=== PATIENT | female | born 1955 | race Caucasian/White ===

== ENCOUNTER 2017-12-12 19:01 | Inpatient (IN) | payer MEDICARE, OTHER ==
[2017-12-12 20:05] LABS: ADD MAN DIFF? NO
[2017-12-12 20:07] LABS: BASOPHILS % 0.5 % (0.0-2.0); EOSINOPHILS % 0.5 % (0.0-7.0); HEMATOCRIT 23.5 % (37.0-47.0); HEMOGLOBIN 7.4 g/dl (12.0-16.0); LYMPHOCYTES # 1.1 10^3/ul (0.8-2.9); LYMPHOCYTES % 12.5 % (15.0-51.0); MEAN CORPUSCULAR HEMOGLOBIN 31.8 pg (29.0-33.0); MEAN CORPUSCULAR HGB CONC 31.5 g/dl (32.0-37.0); MEAN CORPUSCULAR VOLUME 100.9 fl (82.0-101.0); MEAN PLATELET VOLUME 10.7 fl (7.4-10.4); MONOCYTE # 0.5 10^3/ul (0.3-0.9); NEUTROPHIL # 6.8 10^3/ul (1.6-7.5); NEUTROPHILS % 76.4 % (39.0-77.0); NUCLEATED RED BLOOD CELLS # 0.1 10^3/ul (0.0-0.0); NUCLEATED RED BLOOD CELLS% 0.7 /100WBC (0.0-0.0); PLATELET COUNT 287 10^3/UL (140-415); RED BLOOD COUNT 2.33 10^6/ul (4.20-5.40); RED CELL DISTRIBUTION WIDTH 17.7 % (11.5-14.5)
[2017-12-12 20:07] LABS: WHITE BLOOD COUNT 8.8 10^3/ul (4.8-10.8)
[2017-12-12 20:24] LABS: ALANINE AMINOTRANSFERASE 21 IU/L (13-69); ALBUMIN 3.7 g/dl (3.3-4.9); ALBUMIN/GLOBULIN RATIO 1.15; ALKALINE PHOSPHATASE 112 IU/L (42-121); ANION GAP 12 (8-16); ASPARTATE AMINO TRANSFERASE 21 IU/L (15-46); BILIRUBIN,INDIRECT 0.7 mg/dl (0-1.1); BILIRUBIN,TOTAL 0.7 mg/dl (0.2-1.3); BLOOD UREA NITROGEN 30 mg/dl (7-20); CALCIUM 9.4 mg/dl (8.4-10.2); CARBON DIOXIDE 27 mmol/L (21-31); CHLORIDE 107 mmol/L (97-110); CREATININE 1.34 mg/dl (0.44-1.00); GLUCOSE 249 mg/dl (70-220); POTASSIUM 5.1 mmol/L (3.5-5.1); SODIUM 141 mmol/L (135-144); TOTAL PROTEIN 6.9 g/dl (6.1-8.1)
[2017-12-12 20:32] LABS: INR 1.12; PROTIME 14.6 Sec (11.9-14.9); PT RATIO 1.1
[2017-12-12 20:33] LABS: PARTIAL THROMBOPLASTIN TIME 25.9 Sec (25.0-35.0)
[2017-12-12] MEDS: SOD CHLORIDE 0.9% 250 ML IV (21:04)
[2017-12-12 22:02] LABS: IMMEDIATE SPIN CROSSMATCH 1 2
[2017-12-12] MEDS: ASPIRIN 81 MG TAB PO (22:07)
[2017-12-12] MEDS ORDERED: ONDANSETRON 4 MG INJ IV (22:30)
[2017-12-12] MEDS ORDERED: ACETAMINOPHEN 325 MG TAB PO (22:30)
[2017-12-12] MEDS ORDERED: ZOLPIDEM 5 MG TAB PO (23:00)
[2017-12-12] MEDS ORDERED: MAGNESIUM HYDROXIDE 30ML CUP PO (23:00)
[2017-12-12] MEDS ORDERED: NACL 0.9% 3 ML SYG IV (23:00)
[2017-12-12] MEDS ORDERED: HYDROCODONE/APAP (5/325) TAB PO (23:00)
[2017-12-12] MEDS ORDERED: BISACODYL (EC) 5 MG TAB PO (23:00)
[2017-12-12] MEDS ORDERED: DOCUSATE SODIUM 100 MG CAP PO (23:00)
[2017-12-12] MEDS ORDERED: DEXTROSE 50% 50 ML SYRINGE IV ×2 (23:45)
[2017-12-12] MEDS ORDERED: GLUCAGON 1 MG INJ IM (23:45)
[2017-12-12] MEDS ORDERED: GLUCOSE GEL 15 GRAM TUBE PO ×2 (23:45)
[2017-12-12] MEDS ORDERED: GLUCOSE GEL 15 GRAM TUBE BUCCAL (23:45)
[2017-12-13] MEDS: HEPARIN 5,000 UNIT/0.5 ML VIAL SC ×3 (00:06→20:58)
[2017-12-13] MEDS: ACCU-CHEK XX (02:12)
[2017-12-13] MEDS: METOPROLOL 25 MG TAB PO (03:05)
[2017-12-13] MEDS: INSULIN ASPART [NOVOLOG] 3 ML PEN SC ×9 (03:51→20:59)
[2017-12-13] MEDS: FUROSEMIDE 20 MG INJ IV ×2 (04:51→18:49)
[2017-12-13] MEDS: PANTOPRAZOLE (EC) 40 MG TAB PO (06:29)
[2017-12-13] MEDS: SPIRONOLACTONE 25 MG TAB PO (08:37)
[2017-12-13] MEDS: MAGNESIUM HYDROXIDE 30ML CUP PO (08:37)
[2017-12-13] MEDS: predniSONE 5 MG TAB PO (08:37)
[2017-12-13] MEDS: PRAMIPEXOLE 0.25 MG TAB PO ×3 (08:37→21:58)
[2017-12-13] MEDS: ALLOPURINOL 100 MG TAB PO (08:38)
[2017-12-13] MEDS: ASCORBIC ACID 500 MG TAB PO (08:38)
[2017-12-13] MEDS: FOLIC ACID 1 MG TAB PO (08:38)
[2017-12-13] MEDS: ASPIRIN 81 MG TAB PO (08:38)
[2017-12-13] MEDS: MULTIVITAMINS THERAPEUTIC TAB PO (08:38)
[2017-12-13] MEDS: SERTRALINE 100 MG TAB PO (08:38)
[2017-12-13] MEDS ORDERED: FERROUS SULFATE (EC) 325 MG TAB PO (09:00)
[2017-12-13] MEDS ORDERED: PANTOPRAZOLE (EC) 40 MG TAB PO (09:00)
[2017-12-13] MEDS: morphine 2 MG INJ IV (10:04)
[2017-12-13] MEDS: HYDROCODONE/APAP (5/325) TAB PO ×3 (10:10→21:04)
[2017-12-13] MEDS: INSULIN GLARGINE [LANtus] 3 ML PEN SC ×2 (10:11→20:44)
[2017-12-13] MEDS: ISOSORBIDE MONONITRATE(SR)30 MG TAB PO ×2 (11:47→20:42)
[2017-12-13 17:35] LABS: ADD MAN DIFF? NO
[2017-12-13 17:38] LABS: WHITE BLOOD COUNT 8.6 10^3/ul (4.8-10.8)
[2017-12-13 17:38] LABS: BASOPHILS % 0.4 % (0.0-2.0); EOSINOPHILS # 0.1 10^3/ul (0.0-0.5); EOSINOPHILS % 0.8 % (0.0-7.0); HEMATOCRIT 30.1 % (37.0-47.0); HEMOGLOBIN 9.9 g/dl (12.0-16.0); LYMPHOCYTES % 11.9 % (15.0-51.0); MEAN CORPUSCULAR HEMOGLOBIN 31.2 pg (29.0-33.0); MEAN CORPUSCULAR HGB CONC 32.9 g/dl (32.0-37.0); MEAN PLATELET VOLUME 10.5 fl (7.4-10.4); MONOCYTE # 0.6 10^3/ul (0.3-0.9); MONOCYTES % 6.4 % (0.0-11.0); NEUTROPHIL # 6.5 10^3/ul (1.6-7.5); NEUTROPHILS % 76.4 % (39.0-77.0); NUCLEATED RED BLOOD CELLS # 0.1 10^3/ul (0.0-0.0); NUCLEATED RED BLOOD CELLS% 0.7 /100WBC (0.0-0.0); PLATELET COUNT 293 10^3/UL (140-415); RED BLOOD COUNT 3.17 10^6/ul (4.20-5.40); RED CELL DISTRIBUTION WIDTH 19.3 % (11.5-14.5)
[2017-12-13 17:59] LABS: CREATINE KINASE 22 IU/L (23-200)
[2017-12-13 18:12] LABS: CK INDEX 7.1; CK-MB 1.56 ng/ml (0.0-2.4)
[2017-12-13 18:13] LABS: ALANINE AMINOTRANSFERASE 21 IU/L (13-69); ALBUMIN/GLOBULIN RATIO 1.15; ALKALINE PHOSPHATASE 95 IU/L (42-121); ANION GAP 9 (8-16); ASPARTATE AMINO TRANSFERASE 17 IU/L (15-46); BILIRUBIN,INDIRECT 1.2 mg/dl (0-1.1); BILIRUBIN,TOTAL 1.2 mg/dl (0.2-1.3); BLOOD UREA NITROGEN 38 mg/dl (7-20); CALCIUM 9.2 mg/dl (8.4-10.2); CARBON DIOXIDE 30 mmol/L (21-31); CHLORIDE 105 mmol/L (97-110); CREATININE 1.12 mg/dl (0.44-1.00); GLUCOSE 255 mg/dl (70-220); SODIUM 138 mmol/L (135-144); TOTAL PROTEIN 5.6 g/dl (6.1-8.1)
[2017-12-13 18:21] LABS: POTASSIUM 6.2 mmol/L (3.5-5.1)
[2017-12-13] MEDS: NA POLYST SULFON 15 GM/60 ML BTL PO (18:44)
[2017-12-13] MEDS ORDERED: morphine LIQ (10 MG/5 ML) CUP PO (19:00)
[2017-12-13 20:00] LABS: HEMOGLOBIN A1C 9.2 % (0-5.9)
[2017-12-13] MEDS: ATORVASTATIN 10 MG TAB PO (20:41)
[2017-12-14 00:28] LABS: OCCULT BLOOD STOOL NEGATIVE (NEGATIVE)
[2017-12-14] MEDS: ACCU-CHEK XX (02:00)
[2017-12-14] MEDS: PANTOPRAZOLE (EC) 40 MG TAB PO (05:50)
[2017-12-14 07:51] LABS: ADD MAN DIFF? NO
[2017-12-14 07:58] LABS: BASOPHIL # 0.1 10^3/ul (0.0-0.1); BASOPHILS % 0.7 % (0.0-2.0); EOSINOPHILS # 0.1 10^3/ul (0.0-0.5); EOSINOPHILS % 1.8 % (0.0-7.0); HEMATOCRIT 32.7 % (37.0-47.0); HEMOGLOBIN 10.5 g/dl (12.0-16.0); LYMPHOCYTES # 1.7 10^3/ul (0.8-2.9); LYMPHOCYTES % 21.6 % (15.0-51.0); MEAN CORPUSCULAR HEMOGLOBIN 30.6 pg (29.0-33.0); MEAN CORPUSCULAR HGB CONC 32.1 g/dl (32.0-37.0); MEAN CORPUSCULAR VOLUME 95.3 fl (82.0-101.0); MEAN PLATELET VOLUME 10.2 fl (7.4-10.4); MONOCYTE # 0.5 10^3/ul (0.3-0.9); MONOCYTES % 6.9 % (0.0-11.0); NEUTROPHILS % 65.3 % (39.0-77.0); NUCLEATED RED BLOOD CELLS% 0.5 /100WBC (0.0-0.0); PLATELET COUNT 294 10^3/UL (140-415); RED BLOOD COUNT 3.43 10^6/ul (4.20-5.40); RED CELL DISTRIBUTION WIDTH 18.9 % (11.5-14.5)
[2017-12-14 07:58] LABS: WHITE BLOOD COUNT 7.7 10^3/ul (4.8-10.8)
[2017-12-14] MEDS: ALLOPURINOL 100 MG TAB PO (08:03)
[2017-12-14] MEDS: MAGNESIUM HYDROXIDE 30ML CUP PO (08:04)
[2017-12-14] MEDS: ISOSORBIDE MONONITRATE(SR)30 MG TAB PO ×2 (08:04→20:33)
[2017-12-14] MEDS: MULTIVITAMINS THERAPEUTIC TAB PO (08:04)
[2017-12-14] MEDS: FOLIC ACID 1 MG TAB PO (08:05)
[2017-12-14] MEDS: predniSONE 5 MG TAB PO (08:05)
[2017-12-14] MEDS: ASPIRIN 81 MG TAB PO (08:05)
[2017-12-14] MEDS: ASCORBIC ACID 500 MG TAB PO (08:05)
[2017-12-14] MEDS: PRAMIPEXOLE 0.25 MG TAB PO ×3 (08:05→20:33)
[2017-12-14] MEDS: SERTRALINE 100 MG TAB PO (08:06)
[2017-12-14 08:14] LABS: CREATINE KINASE 21 IU/L (23-200)
[2017-12-14] MEDS: HEPARIN 5,000 UNIT/0.5 ML VIAL SC ×2 (08:19→20:43)
[2017-12-14] MEDS: INSULIN ASPART [NOVOLOG] 3 ML PEN SC ×6 (08:20→20:43)
[2017-12-14] MEDS: INSULIN GLARGINE [LANtus] 3 ML PEN SC ×2 (08:23→20:29)
[2017-12-14 08:24] LABS: ALANINE AMINOTRANSFERASE 27 IU/L (13-69); ALBUMIN 3.4 g/dl (3.3-4.9); ALBUMIN/GLOBULIN RATIO 1.09; ALKALINE PHOSPHATASE 107 IU/L (42-121); ANION GAP 9 (8-16); ASPARTATE AMINO TRANSFERASE 21 IU/L (15-46); BILIRUBIN,INDIRECT 1.3 mg/dl (0-1.1); BILIRUBIN,TOTAL 1.3 mg/dl (0.2-1.3); BLOOD UREA NITROGEN 36 mg/dl (7-20); CALCIUM 9.3 mg/dl (8.4-10.2); CARBON DIOXIDE 32 mmol/L (21-31); CHLORIDE 103 mmol/L (97-110); CREATININE 1.09 mg/dl (0.44-1.00); GLUCOSE 318 mg/dl (70-220); POTASSIUM 5.1 mmol/L (3.5-5.1); SODIUM 139 mmol/L (135-144); TOTAL PROTEIN 6.5 g/dl (6.1-8.1)
[2017-12-14 08:26] LABS: CK-MB 1.46 ng/ml (0.0-2.4)
[2017-12-14 08:30] LABS: TROPONIN-I 0.963 ng/ml (0.000-0.120)
[2017-12-14 08:36] LABS: PHOSPHORUS 3.8 mg/dl (2.5-4.9)
[2017-12-14] MEDS: REGADENOSON 0.4 MG/5 ML SYG (09:40)
[2017-12-14] MEDS: ACETAMINOPHEN 325 MG TAB PO (10:49)
[2017-12-14] MEDS: ONDANSETRON 4 MG INJ IV (10:49)
[2017-12-14] MEDS: HYDROCODONE/APAP (5/325) TAB PO ×2 (13:03→20:48)
[2017-12-14] MEDS: SOD CHLORIDE 0.9% 1,000 ML IV (15:24)
[2017-12-14] MEDS ORDERED: INSULIN GLARGINE [LANtus] 3 ML PEN SC (20:00)
[2017-12-14] MEDS: ATORVASTATIN 10 MG TAB PO (20:32)
[2017-12-15] MEDS: ACCU-CHEK XX (02:00)
[2017-12-15] MEDS: SOD CHLORIDE 0.9% 1,000 ML IV (04:48)
[2017-12-15] MEDS: PANTOPRAZOLE (EC) 40 MG TAB PO (06:31)
[2017-12-15 06:50] LABS: ADD MAN DIFF? NO
[2017-12-15 07:09] LABS: BASOPHILS % 0.5 % (0.0-2.0); EOSINOPHILS # 0.2 10^3/ul (0.0-0.5); EOSINOPHILS % 1.9 % (0.0-7.0); HEMATOCRIT 32.1 % (37.0-47.0); HEMOGLOBIN 10.3 g/dl (12.0-16.0); LYMPHOCYTES # 1.7 10^3/ul (0.8-2.9); LYMPHOCYTES % 21.3 % (15.0-51.0); MEAN CORPUSCULAR HEMOGLOBIN 30.6 pg (29.0-33.0); MEAN CORPUSCULAR HGB CONC 32.1 g/dl (32.0-37.0); MEAN CORPUSCULAR VOLUME 95.3 fl (82.0-101.0); MEAN PLATELET VOLUME 9.9 fl (7.4-10.4); MONOCYTE # 0.5 10^3/ul (0.3-0.9); MONOCYTES % 6.7 % (0.0-11.0); NEUTROPHIL # 5.4 10^3/ul (1.6-7.5); NEUTROPHILS % 67.5 % (39.0-77.0); NUCLEATED RED BLOOD CELLS% 0.2 /100WBC (0.0-0.0); PLATELET COUNT 269 10^3/UL (140-415); RED BLOOD COUNT 3.37 10^6/ul (4.20-5.40); RED CELL DISTRIBUTION WIDTH 17.9 % (11.5-14.5)
[2017-12-15 07:20] LABS: PHOSPHORUS 4.2 mg/dl (2.5-4.9)
[2017-12-15 07:39] LABS: ANION GAP 8 (8-16); BLOOD UREA NITROGEN 39 mg/dl (7-20); CALCIUM 8.9 mg/dl (8.4-10.2); CARBON DIOXIDE 30 mmol/L (21-31); CHLORIDE 106 mmol/L (97-110); CREATININE 1.12 mg/dl (0.44-1.00); GLUCOSE 202 mg/dl (70-220); SODIUM 139 mmol/L (135-144)
[2017-12-15] MEDS: ASPIRIN 81 MG TAB PO (08:04)
[2017-12-15] MEDS: ALLOPURINOL 100 MG TAB PO (08:04)
[2017-12-15] MEDS: MULTIVITAMINS THERAPEUTIC TAB PO (08:04)
[2017-12-15] MEDS: SERTRALINE 100 MG TAB PO (08:04)
[2017-12-15] MEDS: PRAMIPEXOLE 0.25 MG TAB PO ×2 (08:04→12:06)
[2017-12-15] MEDS: FOLIC ACID 1 MG TAB PO (08:04)
[2017-12-15] MEDS: MAGNESIUM HYDROXIDE 30ML CUP PO (08:05)
[2017-12-15] MEDS: ISOSORBIDE MONONITRATE(SR)30 MG TAB PO (08:05)
[2017-12-15] MEDS: ASCORBIC ACID 500 MG TAB PO (08:05)
[2017-12-15] MEDS: predniSONE 5 MG TAB PO (08:05)
[2017-12-15] MEDS: INSULIN GLARGINE [LANtus] 3 ML PEN SC (08:10)
[2017-12-15] MEDS: HEPARIN 5,000 UNIT/0.5 ML VIAL SC (08:10)
[2017-12-15] MEDS: INSULIN ASPART [NOVOLOG] 3 ML PEN SC ×6 (08:11→17:53)
[2017-12-15] MEDS: HYDROCODONE/APAP (5/325) TAB PO ×2 (08:16→15:26)
[2017-12-15 10:19] LABS: ADD UMIC YES; UR ASCORBIC ACID 40 mg/dL (NEGATIVE); UR BACTERIA FEW /HPF (NONE SEEN); UR BILIRUBIN (Dip) NEGATIVE (NEGATIVE); UR BLOOD (Dip) NEGATIVE (NEGATIVE); UR CLARITY CLEAR (CLEAR); UR COLOR YELLOW (YELLOW); UR GLUCOSE (Dip) NEGATIVE (NEGATIVE); UR KETONES (Dip) NEGATIVE (NEGATIVE); UR LEUKOCYTE ESTERASE (Dip) TRACE Leu/ul (NEGATIVE); UR NITRITE (Dip) NEGATIVE (NEGATIVE); UR RBC 2 /HPF (0-5); UR SPECIFIC GRAVITY (Dip) 1.015 (1.003-1.030); UR SQUAMOUS EPITHELIAL CELL FEW /HPF (FEW); UR TOTAL PROTEIN (Dip) NEGATIVE (NEGATIVE); UR UROBILINOGEN (Dip) 1+ mg/dL (NEGATIVE); UR WBC 5 /HPF (0-5)
[2017-12-15] MEDS: AMLODIPINE 5 MG TAB PO (17:54)
[2017-12-15] MEDS: LORAZEPAM 0.5 MG TAB PO (18:48)
== END 2017-12-15 19:35 | DRG 281 ==
LOC: TEL 22:04 → E/R 19:01
PROVIDERS: Pediatrics
PROC: 30233N1 Transfusion of Nonautologous Red Blood Cells into Peripheral Vein, Percutaneous Approach (ICD-10-PCS; principal; 2017-12-12)
DX: I21.4 Non-ST elevation (NSTEMI) myocardial infarction (principal); I13.0 Hypertensive heart and chronic kidney disease with heart failure and stage 1 through stage 4 chronic kidney disease, or unspecified chronic kidney disease; N17.9 Acute kidney failure, unspecified; D46.9 Myelodysplastic syndrome, unspecified; I25.10 Atherosclerotic heart disease of native coronary artery without angina pectoris; M06.9 Rheumatoid arthritis, unspecified; E11.51 Type 2 diabetes mellitus with diabetic peripheral angiopathy without gangrene; E78.5 Hyperlipidemia, unspecified; E11.22 Type 2 diabetes mellitus with diabetic chronic kidney disease; N18.9 Chronic kidney disease, unspecified; I50.9 Heart failure, unspecified; D75.89 Other specified diseases of blood and blood-forming organs; E86.0 Dehydration; E87.5 Hyperkalemia; G89.4 Chronic pain syndrome; E79.0 Hyperuricemia without signs of inflammatory arthritis and tophaceous disease; E11.42 Type 2 diabetes mellitus with diabetic polyneuropathy; Z79.4 Long term (current) use of insulin; Z79.82 Long term (current) use of aspirin; Z95.1 Presence of aortocoronary bypass graft; Z87.891 Personal history of nicotine dependence
CPT/HCPCS: 36415; 36430; 71045; 73510; 78452; 80048; 80053; 81001; 82270; 82550; 82553; 82962; 83036; 83735; 84100; 84443; 84484; 85025; 85610; 85730; 86850; 86900; 86901; 86920; 87086; 93005; 93017; 93306; 93880; 93970; 96372; 97161; 99291-25

== ENCOUNTER 2019-01-16 20:17 | Emergency (ER) | payer MEDICARE, OTHER ==
[2019-01-17] MEDS ORDERED: SOD CHLORIDE 0.9% 500 ML IV (00:15)
[2019-01-17 00:25] LABS: ADD MAN DIFF? NO
[2019-01-17 00:27] LABS: BASOPHIL # 0.1 10^3/ul (0.0-0.1); BASOPHILS % 0.5 % (0.0-2.0); EOSINOPHILS # 0.3 10^3/ul (0.0-0.5); EOSINOPHILS % 3.2 % (0.0-7.0); HEMATOCRIT 25.9 % (37.0-47.0); HEMOGLOBIN 8.2 g/dl (12.0-16.0); LYMPHOCYTES # 1.5 10^3/ul (0.8-2.9); LYMPHOCYTES % 14.2 % (15.0-51.0); MEAN CORPUSCULAR HEMOGLOBIN 31.9 pg (29.0-33.0); MEAN CORPUSCULAR HGB CONC 31.7 g/dl (32.0-37.0); MEAN CORPUSCULAR VOLUME 100.8 fl (82.0-101.0); MEAN PLATELET VOLUME 10.5 fl (7.4-10.4); MONOCYTE # 0.9 10^3/ul (0.3-0.9); MONOCYTES % 8.4 % (0.0-11.0); NEUTROPHIL # 7.6 10^3/ul (1.6-7.5); NEUTROPHILS % 73.1 % (39.0-77.0); NUCLEATED RED BLOOD CELLS% 0.4 /100WBC (0.0-0.0); PLATELET COUNT 345 10^3/UL (140-415); RED BLOOD COUNT 2.57 10^6/ul (4.20-5.40); RED CELL DISTRIBUTION WIDTH 21.5 % (11.5-14.5)
[2019-01-17 00:27] LABS: WHITE BLOOD COUNT 10.3 10^3/ul (4.8-10.8)
[2019-01-17 00:45] LABS: IRON 41 ug/dl (35-150)
[2019-01-17 00:46] LABS: ANION GAP 10 (5-13); BLOOD UREA NITROGEN 18 mg/dl (7-20); CALCIUM 9.5 mg/dl (8.4-10.2); CARBON DIOXIDE 28 mmol/L (21-31); CHLORIDE 104 mmol/L (97-110); CREATININE 1.17 mg/dl (0.44-1.00); Estimated GFR 47 mL/min (>60); GLUCOSE 259 mg/dl (70-220); POTASSIUM 4.3 mmol/L (3.5-5.1); SODIUM 142 mmol/L (135-144)
[2019-01-17 00:55] LABS: % IRON SATURATION 20 % SAT (22-52); TOTAL IRON BINDING CAPACITY 206 ug/dl (241-421)
[2019-01-17 02:52] LABS: IMMEDIATE SPIN CROSSMATCH 1 1
== END 2019-01-17 08:45 | disposition home or self-care (01) ==
LOC: E/R 20:17
PROVIDERS: Pediatrics
DX: D64.9 Anemia, unspecified (principal); I11.0 Hypertensive heart disease with heart failure; I50.9 Heart failure, unspecified; I25.10 Atherosclerotic heart disease of native coronary artery without angina pectoris; F17.210 Nicotine dependence, cigarettes, uncomplicated; Z79.4 Long term (current) use of insulin; Z79.82 Long term (current) use of aspirin
CPT/HCPCS: 36430; 80048; 82728; 83540; 85025; 86644; 86850; 86900; 86901; 86920; 99285-25